=== PATIENT | male | born 1960 | race Caucasian/White ===

== ENCOUNTER 2021-04-30 08:57 | Emergency (ER) | payer OTHER ==
[~2021-04-30] VITALS: Ht 175.3 cm; Wt 90.7 kg
[2021-04-30 09:03] VITALS: BP_SYST 187
[2021-04-30] MEDS ORDERED: HYDROcodone/ACETAMIN 10-325 MG TAB PO ONE (09:30)
[2021-04-30] MEDS ORDERED: IBUPROFEN 800 MG TABLET PO ONE (09:30)
[2021-04-30] MEDS ORDERED: HYDR-3917 PO (10:25)
[2021-04-30] MEDS ORDERED: IBUP-1971 PO (10:25)
[2021-04-30 10:47] VITALS: BP_SYST 169
== END 2021-04-30 10:45 | disposition home or self-care (01) ==
LOC: SED 08:57
DX: S33.5XXA Sprain of ligaments of lumbar spine, initial encounter (principal); W18.39XA Other fall on same level, initial encounter; Y93.89 Activity, other specified; Y92.89 Other specified places as the place of occurrence of the external cause; Y99.8 Other external cause status
CPT/HCPCS: 72100-TC; 99283